=== PATIENT | female | born 1950 | race Caucasian/White ===

== ENCOUNTER 2018-05-24 05:25 | Inpatient (IN) | payer MEDICARE, BC ==
[2018-05-24] MEDS: CEFAZOLIN 2 GM/50 ML (PMX) 50 ML IVPB (06:45)
[2018-05-24] MEDS: LACTATED RINGER'S 1,000 ML IV* (06:46)
[2018-05-24] MEDS: POLYMYXIN/BACITRACIN 1L IRRIG (06:48)
[2018-05-24] MEDS: GELATIN SIZE 100 SPONGE (06:48)
[2018-05-24] MEDS: BUPIVACAINE 0.25% (MPF) 30 ML INJ (06:48)
[2018-05-24] MEDS: THROMBIN 5000 UNIT VIAL (06:48)
[2018-05-24] MEDS ORDERED: ROCURONIUM 50 MG INJ (06:52)
[2018-05-24] MEDS ORDERED: PROPOFOL 20 ML (06:52)
[2018-05-24] MEDS ORDERED: MIDAZOLAM 1 MG/ML 2 ML INJ (06:52)
[2018-05-24] MEDS ORDERED: OXYCODONE/ACETAMINOPHEN (5/325) TAB PO ×2 (07:00)
[2018-05-24] MEDS ORDERED: GLYCOPYRROLATE 0.4 MG INJ (07:00)
[2018-05-24] MEDS ORDERED: FENTAnyl 50 MCG/ML VIAL IV ×2 (07:00)
[2018-05-24] MEDS ORDERED: METOCLOPRAMIDE 10 MG INJ IV (07:00)
[2018-05-24] MEDS ORDERED: hydrALAzine 20 MG INJ IV (07:00)
[2018-05-24] MEDS ORDERED: HYDROmorphONE 1 MG/5 ML IV SYRINGE IV ×2 (07:00)
[2018-05-24] MEDS ORDERED: EPHEDrine SULFATE 50 MG/5 ML SYG IV (07:00)
[2018-05-24] MEDS ORDERED: MEPERIDINE 25 MG INJ IV (07:00)
[2018-05-24] MEDS ORDERED: LABETALOL HCL 20MG INJ IV (07:00)
[2018-05-24] MEDS ORDERED: NEOSTIGMINE 3 MG/3 ML SYRINGE (07:00)
[2018-05-24] MEDS ORDERED: ACETAMINOPHEN 1000MG/100ML IV 100 ML (07:11)
[2018-05-24] MEDS ORDERED: DEXAMETHASONE 4 MG/ML 1 ML INJ (07:12)
[2018-05-24] MEDS ORDERED: ONDANSETRON 4 MG INJ (07:12)
[2018-05-24] MEDS ORDERED: PHENYLephrine (100 MCG/ML) 5ML SYG (07:24)
[2018-05-24] MEDS ORDERED: hydrALAzine 20 MG INJ ×2 (07:42→09:22)
[2018-05-24] MEDS: HYDROmorphONE 1 MG/5 ML IV SYRINGE IV (09:46)
[2018-05-24] MEDS: ONDANSETRON 4 MG INJ IV (09:47)
[2018-05-24] MEDS: DIPHENHYDRAMINE 50 MG INJ IV (09:48)
[2018-05-24] MEDS: FENTAnyl 50 MCG/ML VIAL IV (09:49)
[2018-05-24] MEDS ORDERED: ZOLPIDEM 5 MG TAB PO (10:00)
[2018-05-24] MEDS ORDERED: HYDROCODONE/APAP (5/325) TAB PO (10:00)
[2018-05-24] MEDS ORDERED: TRIMETHOBENZAMIDE 100 MG/ML VIAL IM (10:00)
[2018-05-24] MEDS ORDERED: CEPASTAT LOZENGE MT (10:00)
[2018-05-24] MEDS ORDERED: DIAZEPAM 5 MG/ML SYG IM (10:00)
[2018-05-24] MEDS ORDERED: AL HYDROX/MG HYDROX/SIMETH 30 ML CUP PO (10:00)
[2018-05-24] MEDS ORDERED: ACETAMINOPHEN 325 MG TAB PO (10:00)
[2018-05-24] MEDS ORDERED: BETHANECHOL 25 MG TAB PO (10:00)
[2018-05-24] MEDS ORDERED: ONDANSETRON 4 MG INJ IV (10:00)
[2018-05-24] MEDS ORDERED: DIPHENHYDRAMINE 50 MG CAP PO (10:00)
[2018-05-24] MEDS ORDERED: PROCHLORPERAZINE 10 MG TAB PO (10:00)
[2018-05-24] MEDS ORDERED: NACL 0.9% 3 ML SYG IV (10:00)
[2018-05-24] MEDS ORDERED: NALOXONE (0.4 MG/ML) INJ IV (10:00)
[2018-05-24] MEDS ORDERED: HYDROmorphONE 0.2 MG/ML PCA (10:17)
[2018-05-24] MEDS: HYDROmorphONE 0.2 MG/ML PCA IV (10:21)
[2018-05-24] MEDS ORDERED: EPHEDrine SULFATE 50 MG/5 ML SYG (10:57)
[2018-05-24] MEDS: DEXTROSE 5%-0.45% NACL 1,000 ML IV ×2 (13:00→22:28)
[2018-05-24] MEDS: CEFAZOLIN 1 GM/50 ML (PMX) 50 ML IVPB ×2 (16:03→21:54)
[2018-05-24] MEDS: PROPRANOLOL 10 MG TAB PO ×2 (21:00→21:16)
[2018-05-24] MEDS: LAMOTRIGINE 100 MG TAB PO (21:16)
[2018-05-24] MEDS: PREGABALIN 100 MG CAP PO (21:16)
[2018-05-24] MEDS: RANITIDINE 150 MG TAB PO (21:16)
[2018-05-24] MEDS: ZIPRASIDONE 20 MG CAP PO (21:50)
[2018-05-25] MEDS: HYDROmorphONE 0.2 MG/ML PCA IV (00:25)
[2018-05-25] MEDS: SOD CHLORIDE 0.9% 500 ML IV (00:59)
[2018-05-25] MEDS: CEFAZOLIN 1 GM/50 ML (PMX) 50 ML IVPB ×2 (04:42→09:53)
[2018-05-25] MEDS ORDERED: BETHANECHOL 25 MG TAB PO (08:00)
[2018-05-25 08:31] LABS: HEMATOCRIT 26.3 % (37.0-47.0); HEMOGLOBIN 8.5 g/dl (12.0-16.0)
[2018-05-25] MEDS: SERTRALINE 100 MG TAB PO (08:44)
[2018-05-25] MEDS: RANITIDINE 150 MG TAB PO ×2 (08:45→20:56)
[2018-05-25] MEDS: FERROUS SULFATE (EC) 325 MG TAB PO ×3 (08:45→20:54)
[2018-05-25] MEDS: PREGABALIN 100 MG CAP PO ×2 (08:45→20:55)
[2018-05-25] MEDS: ASCORBIC ACID 500 MG TAB PO ×2 (08:45→20:56)
[2018-05-25] MEDS: DOCUSATE SODIUM 100 MG CAP PO ×2 (08:47→20:56)
[2018-05-25] MEDS: PROPRANOLOL 10 MG TAB PO ×2 (08:47→21:00)
[2018-05-25 08:55] LABS: ANION GAP 7 (8-16); BLOOD UREA NITROGEN 15 mg/dl (7-20); CALCIUM 7.8 mg/dl (8.4-10.2); CARBON DIOXIDE 28 mmol/L (21-31); CHLORIDE 112 mmol/L (97-110); CREATININE 0.86 mg/dl (0.44-1.00); GLUCOSE 124 mg/dl (70-220); POTASSIUM 3.6 mmol/L (3.5-5.1); SODIUM 143 mmol/L (135-144)
[2018-05-25] MEDS: DEXTROSE 5%-0.45% NACL 1,000 ML IV ×2 (10:00→19:00)
[2018-05-25] MEDS: HYDROCODONE/APAP (5/325) TAB PO (10:02)
[2018-05-25] MEDS ORDERED: OXYCODONE/ACETAMINOPHEN (10/325) TAB PO (13:00)
[2018-05-25] MEDS: OXYCODONE/ACETAMINOPHEN (5/325) TAB PO (13:31)
[2018-05-25 14:09] LABS: ADD UMIC NO; UR ASCORBIC ACID NEGATIVE (NEGATIVE); UR BILIRUBIN (Dip) NEGATIVE (NEGATIVE); UR BLOOD (Dip) NEGATIVE (NEGATIVE); UR CLARITY CLEAR (CLEAR); UR COLOR STRAW (YELLOW); UR GLUCOSE (Dip) NEGATIVE (NEGATIVE); UR KETONES (Dip) NEGATIVE (NEGATIVE); UR LEUKOCYTE ESTERASE (Dip) NEGATIVE Leu/ul (NEGATIVE); UR NITRITE (Dip) NEGATIVE (NEGATIVE); UR SPECIFIC GRAVITY (Dip) 1.006 (1.003-1.030); UR TOTAL PROTEIN (Dip) NEGATIVE (NEGATIVE); UR UROBILINOGEN (Dip) NEGATIVE (NEGATIVE)
[2018-05-25] MEDS: OXYCODONE/ACETAMINOPHEN (10/325) TAB PO ×2 (16:20→20:55)
[2018-05-25] MEDS: ZIPRASIDONE 20 MG CAP PO (20:56)
[2018-05-25] MEDS: LAMOTRIGINE 100 MG TAB PO (20:56)
[2018-05-26] MEDS: OXYCODONE/ACETAMINOPHEN (10/325) TAB PO ×4 (03:24→15:45)
[2018-05-26] MEDS: ALPRAZOLAM 1 MG TAB PO (04:07)
[2018-05-26] MEDS: DEXTROSE 5%-0.45% NACL 1,000 ML IV (05:00)
[2018-05-26 05:11] LABS: HEMATOCRIT 29.4 % (37.0-47.0); HEMOGLOBIN 9.5 g/dl (12.0-16.0)
[2018-05-26] MEDS: RANITIDINE 150 MG TAB PO (08:25)
[2018-05-26] MEDS: DOCUSATE SODIUM 100 MG CAP PO (08:25)
[2018-05-26] MEDS: SERTRALINE 100 MG TAB PO (08:25)
[2018-05-26] MEDS: FERROUS SULFATE (EC) 325 MG TAB PO ×2 (08:27→13:00)
[2018-05-26] MEDS: PROPRANOLOL 10 MG TAB PO (08:27)
[2018-05-26] MEDS: ASCORBIC ACID 500 MG TAB PO (08:27)
[2018-05-26] MEDS: DIAZEPAM 5 MG TAB PO (08:27)
[2018-05-26] MEDS ORDERED: MOVANTIK (NALOXEGOL) 25MG PO (09:00)
[2018-05-26] MEDS: PREGABALIN 100 MG CAP PO (11:19)
== END 2018-05-26 20:20 | disposition home or self-care (01) | DRG 516 ==
LOC: REC 05:25 → MS1 11:25
PROC: 01NB0ZZ Release Lumbar Nerve, Open Approach (ICD-10-PCS; principal; 2018-05-24 07:00)
DX: M48.061 Spinal stenosis, lumbar region without neurogenic claudication (principal); D62 Acute posthemorrhagic anemia; M51.26 Other intervertebral disc displacement, lumbar region; F31.9 Bipolar disorder, unspecified; M79.7 Fibromyalgia; F32.9 Major depressive disorder, single episode, unspecified; R03.1 Nonspecific low blood-pressure reading
CPT/HCPCS: 72020; 80048; 81003; 85014; 85018; 86850; 86900; 86901; 86920; 87086; 88304; 88311; 97116; 97162; 97530